=== PATIENT | female | born 1975 | race Two or more races ===

== ENCOUNTER 2022-07-19 09:21 | Outpatient (CLI) | payer OTHER | END 2022-07-19 23:59 | disposition home or self-care (01) | LOC: LAB 09:21 | PROVIDERS: ATTEND Specialist | DX: Z01.812 Encounter for preprocedural laboratory examination (principal); Z20.822 Contact with and (suspected) exposure to COVID-19 | CPT/HCPCS: U0003; C9803 ==

== ENCOUNTER 2022-07-25 07:05 | Day surgery (SDC) | payer OTHER ==
[~2022-07-25 07:05] MED LIST: ANESTHESIA TRAY IN PYXIS 1 EA TRAY MC ONE; BUPIVACAINE 0.5 % PF 150 MG/30 ML VIAL ONE; methylPREDNISolone ACETATE 80 MG/ML VIAL ONE
[2022-07-25] MEDS ORDERED: MIDAZOLAM HCL 2 MG/2ML VIAL ONE (08:28)
[2022-07-25] MEDS ORDERED: HYDROMORPHONE INJ 2 MG/ML DISP.SYRIN ONE (08:28)
[2022-07-25] MEDS ORDERED: BUPIVACAINE 0.5 % PF 150 MG/30 ML VIAL ONE (09:10)
[2022-07-25] MEDS ORDERED: ANESTHESIA TRAY IN PYXIS 1 EA TRAY MC ONE (10:46)
[2022-07-25] MEDS ORDERED: HYDROMORPHONE 1 MG/1 ML DISP.SYRIN ONE (10:50)
[2022-07-25] MEDS ORDERED: HYDROCODONE/APAP 5/325MG TABLET ONE (11:33)
[2022-07-25] MEDS ORDERED: HYDROCODONE/APAP 5/325MG TABLET PO PRN ×2 (12:30)
== END 2022-07-25 12:37 | disposition home or self-care (01) ==
LOC: DS 07:05
PROVIDERS: ATTEND Specialist
DX: S83.511A Sprain of anterior cruciate ligament of right knee, initial encounter (principal); S83.281A Other tear of lateral meniscus, current injury, right knee, initial encounter; S83.241A Other tear of medial meniscus, current injury, right knee, initial encounter; X58.XXXA Exposure to other specified factors, initial encounter; Y93.89 Activity, other specified; Y92.89 Other specified places as the place of occurrence of the external cause; Y99.8 Other external cause status; E66.01 Morbid (severe) obesity due to excess calories; Z68.31 Body mass index [BMI] 31.0-31.9, adult; Z98.890 Other specified postprocedural states; Z79.899 Other long term (current) drug therapy
CPT/HCPCS: 29888; 97161; 29880; 97116; 84703; L1830; J0690; J3490 ×3; J1100; J2704; J1170 ×2; J2765; J2405; C1713 ×2; J7030; J2250; A4217; J1040